=== PATIENT | male | born 1990 | race Caucasian/White ===

== ENCOUNTER 2019-02-17 18:58 | Emergency (ER) | payer BC, OTHER ==
--- NOTE | 2019-02-17 19:32 | EDM.PDOC ---
ED HPI GENERAL MEDICAL PROBLEM - General Chief Complaint: ENT Problem Stated Complaint: THROAT EXCRUCIATING PAIN Time Seen by Provider: 02/17/19 19:23 Source of Information: Reports: Patient History Limitations: Reports: No Limitations - History of Present Illness INITIAL COMMENTS - FREE TEXT/NARRATIVE: HISTORY AND PHYSICAL: History of present illness: Patient is a 28-year-old male who presents to the ED today with concern of a sore throat 1 day. Patient states that he has a hard time eating or drinking anything due to the pain of his throat. Patient states he has not taken anything for his symptoms. Patient denies fever, chills, chest pain, shortness of breath, or cough. Denies headache, neck stiff ness, change in vision, syncope, or near syncope. Denies nausea, vomiting, abdominal pain, diarrhea, constipation, or dysuria. Has not noted any blood in urine or stool. Patient has been eating and drinking appropriately. Review of systems: As per history of present illness and below otherwise all systems reviewed and negative. Past medical history: As per history of present illness and as reviewed below otherwise noncontributory. Surgical history: As per history of present illness and as reviewed below otherwise noncontributory. Social history: See social history for further information Family history: As per history of present illness and as reviewed below otherwise noncontributory. Physical exam: General: Patient is alert, oriented, and in no acute distress. Patient sitting comfortably on exam table. HEENT: Atraumatic, normocephalic, pupils equal and reactive bilaterally, negative for conjunctival pallor or scleral icterus, mucous membranes moist, TMs normal bilaterally, throat is severely erythematous, there is an increase in tissue density on the right tonsil compared to the left without uvula shift, neck supple, nontender, trachea midline. Patient is spitting into a cup and positive trismus noted. No meningeal signs. No hot potato voice noted. Lungs: Clear to auscultation, breath sounds equal bilaterally, chest nontender. Heart: S1S2, regular rate and rhythm without overt murmur Abdomen: Soft, nondistended, nontender. Negative for masses or hepatosplenomegaly. Negative for costovertebral tenderness. Pelvis: Stable nontender. Genitourinary: Deferred. Rectal: Deferred. Skin: Intact, warm, dry. No lesions or rashes noted. Extremities: Atraumatic, negative for cords or calf pain. Neurovascular unremarkable. Neuro: Awake, alert, oriented. Cranial nerves II through XII unremarkable. Cerebellum unremarkable. Motor and sensory unremarkable throughout. Exam nonfocal. Notes: Dr. Milner directly involved in patient care. Dr. Tamez, [facility], consulted on patient and accepting of transfer. EMS arranged. Voices understanding and is agreeable to plan of care. Denies any further questions or concerns at this time. Diagnostics: Soft tissue neck CT with contrast Therapeutics: Saline, Rocephin, clindamycin, Decadron Impression: Peritonsillar abscess Plan: 1. Transfer to [facility] to Dr. Nj via EMS Definitive disposition and diagnosis as appropriate pending reevaluation and review of above. Throat Pain Score (Numeric/FACES): 10 - Related Data Allergies Allergy/AdvReac Type Severity Reaction Status Date / Time No Known Allergies Allergy Verified 12/23/14 13:40 Home Meds: Home Meds Albuterol [Proventil HFA] 6.7 gm INH ASDIRECTED PRN 12/23/14 [History] ED ROS GENERAL - Review of Systems Review Of Systems: Comprehensive ROS is negative, except as noted in HPI. ED EXAM, GENERAL - Physical Exam Exam: See Below (See dictation) Course - Vital Signs Last Recorded V/S: Last Vital Signs Temp 99.6 F 02/17/19 21:25 Pulse 103 H 02/17/19 21:25 Resp 22 H 02/17/19 21:25 BP 117/78 02/17/19 21:25 Pulse Ox 97 02/17/19 21:25 - Orders/Labs/Meds Orders: Active Orders 24 hr Category Date Time Status CULTURE BLOOD [BC] Stat Lab 02/17/19 19:50 Received CULTURE BLOOD [] Stat Lab 02/17/19 20:24 Received CULTURE STREP A CONFIRMATION [] Stat Lab 02/17/19 19:19 Results STREP SCRN A RAPID W CULT CONF [] Stat Lab 02/17/19 19:19 Results Blood Culture x2 Reflex Set [OM.PC] Stat Oth 02/17/19 19:58 Ordered Labs: Laboratory Tests 02/17/19 02/17/19 Range/Units 19:50 19:50 WBC 18.33 H (4.0-11.0) K/uL RBC 5.15 (4.50-5.90) M/uL Hgb 16.2 (13.0-17.0) g/dL Hct 46.7 (38.0-50.0) % MCV 90.7 (80.0-98.0) fL MCH 31.5 (27.0-32.0) pg MCHC 34.7 (31.0-37.0) g/dL RDW Std Deviation 40.9 (28.0-62.0) fl RDW Coeff of Jose Alfredo 12 (11.0-15.0) % Plt Count 233 (150-400) K/uL MPV 10.60 (7.40-12.00) fL Neut % (Auto) 84.6 H (48.0-80.0) % Lymph % (Auto) 7.2 L (16.0-40.0) % [place] % (Auto) 7.9 (0.0-15.0) % Eos % (Auto) 0.2 (0.0-7.0) % Baso % (Auto) 0.1 (0.0-1.5) % Neut # (Auto) 15.5 H (1.4-5.7) K/uL Lymph # (Auto) 1.3 (0.6-2.4) K/uL [place] # (Auto) 1.4 H (0.0-0.8) K/uL Eos # (Auto) 0.0 (0.0-0.7) K/uL Baso # (Auto) 0.0 (0.0-0.1) K/uL Nucleated RBC % 0.0 /100WBC Nucleated RBCs # 0 K/uL Sodium 138 (136-148) mmol/L Potassium 3.7 (3.5-5.1) mmol/L Chloride 102 (98-107) mmol/L Carbon Dioxide 23.7 (21.0-32.0) mmol/L BUN 3 L (7.0-18.0) mg/dL Creatinine 1.1 (0.8-1.3) mg/dL Est Cr Clr Drug Dosing 96.16 mL/min Estimated GFR (MDRD) > 60.0 ml/min Glucose 108 H (74-106) mg/dL Calcium 9.2 (8.5-10.1) mg/dL Total Bilirubin 1.2 H (0.2-1.0) mg/dL AST 15 (15-37) IU/L ALT 30 (14-63) IU/L Alkaline Phosphatase 99 (46-116) U/L Total Protein 8.1 (6.4-8.2) g/dL Albumin 4.2 (3.4-5.0) g/dL Globulin 3.9 (2.6-4.0) g/dL Albumin/Globulin Ratio 1.1 (0.9-1.6) Meds: Medications Discontinued Medications Generic Name Dose Route Start Last Admin Trade Name Freq PRN Reason Stop Dose Admin Dexamethasone 10 mg 02/17/19 19:41 02/17/19 19:59 Dexamethasone IVPUSH 02/17/19 19:42 10 mg ONETIME ONE Administration Ceftriaxone Sodium/Dextrose 1 50 mls @ 100 mls/hr 02/17/19 19:41 02/17/19 20: 01 gm/ Premix IV 02/17/19 20:10 100 mls/hr ONETIME ONE Administration Clindamycin Phosphate 900 mg/ 50 mls @ 100 mls/hr 02/17/19 19:42 02/17/19 20: 53 Premix IV 02/17/19 20:11 100 mls/hr ONETIME ONE Administration Sodium Chloride 1,000 mls @ 999 mls/hr 02/17/19 19:42 02/17/19 19:54 Normal Saline IV 02/17/19 20:42 999 mls/hr STAT ONE Administration Iopamidol 80 ml 02/17/19 21:15 02/17/19 21:16 Isovue Multipack-370 (76%) IVPUSH 02/17/19 21:16 80 ml ONETIME STA Administration Morphine Sulfate 2 mg 02/17/19 21:39 Morphine IVPUSH 02/17/19 21:40 ONETIME ONE Ondansetron HCl 4 mg 02/17/19 21:39 Zofran IVPUSH 02/17/19 21:40 ONETIME ONE Departure - Departure Time of Disposition: 21:50 Disposition: DC/Tfer to Acute Hospital 02 Clinical Impression: Peritonsillar abscess - Discharge Information Referrals: PCP,Unknown [Primary Care Provider] - Forms: ED Department Discharge - My Orders Last 24 Hours: My Active Orders 02/17/19 19:19 CULTURE STREP A CONFIRMATION [RM] Stat STREP SCRN A RAPID W CULT CONF [RM] Stat 02/17/19 19:50 CULTURE BLOOD [BC] Stat 02/17/19 19:58 Blood Culture x2 Reflex Set [OM.PC] Stat 02/17/19 20:24 CULTURE BLOOD [BC] Stat - Assessment/Plan Last 24 Hours: My Active Orders 02/17/19 19:19 CULTURE STREP A CONFIRMATION [RM] Stat STREP SCRN A RAPID W CULT CONF [RM] Stat 02/17/19 19:50 CULTURE BLOOD [BC] Stat 02/17/19 19:58 Blood Culture x2 Reflex Set [OM.PC] Stat 02/17/19 20:24 CULTURE BLOOD [BC] Stat
[2019-02-17] MEDS ORDERED: cefTRIAXone 1 GM in Premix Bag 1 BAG IV ONE (19:41)
[2019-02-17] MEDS ORDERED: Dexamethasone 10 MG/ML SDV IVPUSH ONE (19:41)
[2019-02-17] MEDS ORDERED: Clindamycin Phosphate in D5W 900 MG in Premix Bag 1 BAG IV ONE ×2 (19:42)
[2019-02-17] MEDS ORDERED: Sodium Chloride 0.9% 1,000 ML IV ONE (19:42)
[2019-02-17 20:47] LABS: BLOOD UREA NITROGEN,BUN 3 mg/dL (7.0-18.0); CARBON DIOXIDE,CO2 23.7 mmol/L (21.0-32.0); CHLORIDE,CL 102 mmol/L (98-107); GLUCOSE RANDOM 108 mg/dL (74-106); POTASSIUM,K 3.7 mmol/L (3.5-5.1); SODIUM,NA 138 mmol/L (136-148)
[2019-02-17] MEDS ORDERED: Iopamidol 755 MG/ML 500 ML Multipack Bottle IVPUSH STA (21:15)
--- NOTE | 2019-02-17 21:36 | CT ---
INDICATION: Throat pain TECHNIQUE: CT soft tissue of the neck was acquired with IV contrast. 80 mL of Isovue 370 administered. COMPARISON: None available FINDINGS: The right palatine tonsil is enlarged with adjacent edema and phlegmon. There is an irregular collection along the inferior aspect of the right palatine tonsil extending to the right pharyngeal submucosal tissues, measuring up to 1.8 x 1.6 x 3.2 cm, demonstrating mild peripheral enhancement, consistent with an abscess. There is adjacent soft tissue edema and phlegmon in the right pharyngeal submucosal and deep tissues, extending to the retropharyngeal tissues at the level of the hyoid, with small foci of gas within the retropharyngeal phlegmonous changes, unclear if related to portions of the compressed lumen, as well as foci of mild discontiguous enhancement along the phlegmonous areas. Edematous and phlegmonous changes extend to the level of the thyroid cartilage. The adenoids are enlarged. There are borderline, mildly enhancing, right cervical lymph nodes. The parotid glands are within normal limits. There is edema posterior to the right submandibular gland, likely extending from the right pharyngeal process. No discrete thyroid abnormalities are seen. There is paranasal sinus mucosal disease with right maxillary sinus mucosal retention cysts or polyps. No suspicious or acute osseous abnormalities are seen. IMPRESSION: Inferior right tonsillar/peritonsillar abscess with associated edematous and phlegmonous changes in the right pharyngeal soft tissues extending to the retropharyngeal tissues. A suspected evolving retropharyngeal abscess collection. Correlate with ENT evaluation. Dictated by Wesley Granados MD @ 02/17/2019 9:34:11 PM Please note that all CT scans at this facility use dose modulation, iterative reconstruction, and/or weight-based dosing when appropriate to reduce radiation dose to as low as reasonably achievable. Dictated by: Wesley Granados MD @ 02/17/2019 21:35:09 (Electronically Signed)
[2019-02-17] MEDS ORDERED: Morphine 2 MG/ML Syringe IVPUSH ONE (21:39)
[2019-02-17] MEDS ORDERED: Ondansetron 4 MG/2 ML SDV IVPUSH ONE (21:39)
[2019-02-17 22:38] VITALS: BP 120/66; PULSE 102
== END 2019-02-17 22:45 ==
LOC: MW.ED 18:58
DX: J36 Peritonsillar abscess (principal)
CPT/HCPCS: 36415; 70491; 80053; 85025; 87040; 87081; 87804; 87880; 96361; 96365; 96368; 96375; 99284; J0696; J1100; J2270; J2405; J3490; J7040; Q9967